=== PATIENT | male | born 1975 | race Caucasian/White ===

== ENCOUNTER 2017-10-01 14:11 | Day surgery (SDC) | payer OTHER ==
[~2017-10-01] VITALS: Ht 170.2 cm; Wt 93.2 kg
[~2017-10-01 14:11] MED LIST: ACET120S; ALBU90OI; ALBU90OI6; AMOX500 PO; DICLO GEL1 EACH; GLIP2.5ER; HYDGUAL120 PO; LANS15EC; LOSA25; LOVA40; METF500; PROCODE120 PO; Singulair4 M1; ZOLP5
[2017-10-01] MEDS ORDERED: Polyethylene G500 G4 (14:37)
[2017-10-01] MEDS ORDERED: PIOG45 (14:37)
== END 2017-10-01 17:29 | disposition home or self-care (01) ==
LOC: ORSCSDS 14:11
PROVIDERS: Internal Medicine Gastroenterology
PROC: 0D758ZZ Dilation of Esophagus, Via Natural or Artificial Opening Endoscopic (ICD-10-PCS; principal; 2017-10-01 15:30)
PROC: 0DB18ZX Excision of Upper Esophagus, Via Natural or Artificial Opening Endoscopic, Diagnostic (ICD-10-PCS; principal; 2017-10-01 15:30)
PROC: 0DB38ZX Excision of Lower Esophagus, Via Natural or Artificial Opening Endoscopic, Diagnostic (ICD-10-PCS; principal; 2017-10-01 15:30)
DX: K20.0 Eosinophilic esophagitis (principal); E11.9 Type 2 diabetes mellitus without complications; K21.9 Gastro-esophageal reflux disease without esophagitis; I10 Essential (primary) hypertension; J45.909 Unspecified asthma, uncomplicated; E78.5 Hyperlipidemia, unspecified; G47.33 Obstructive sleep apnea (adult) (pediatric); E66.9 Obesity, unspecified; Z68.32 Body mass index [BMI] 32.0-32.9, adult; Z79.84 Long term (current) use of oral hypoglycemic drugs; Z79.899 Other long term (current) drug therapy
CPT/HCPCS: 82947; 88305

== ENCOUNTER 2021-09-21 12:00 | Day surgery (SDC) | payer OTHER, BC ==
[~2021-09-21] VITALS: Ht 170.2 cm; Wt 89.2 kg
[~2021-09-21 12:00] MED LIST changes: +ALBU90OI INH; +Apple Cider Vi300 MG PO; +CHLO25B PO; +GLIP10 PO; +GLUCOPHAGE1000 MG PO; +LANS30EC PO; +LOSA25 PO; +Lovastatin20 MG PO; +MAGNESIUM PO; +MIRALAX119 GM PO; +MONT10T PO; +PIOG45; +Polyethylene G500 G4; +Sudogest60 MG PO; +TURMERIC CURCU500 MG PO; +ZOLP5 PO
[2021-09-21] MEDS ORDERED: TRULICITY1.5 MG/0.1 (12:32)
[2021-09-21] MEDS ORDERED: ROSU5 (12:33)
[2021-09-21] MEDS ORDERED: ZYRTEC10 M2 (12:34)
--- NOTE | 2021-09-21 12:48 | NUR ---
09/21/21 1248 Carol Comer TIMEOUT AND SITE CHECK DONE WITH DR CONSTANCE SRIVASTAVA.
== END 2021-09-21 15:50 | disposition home or self-care (01) ==
LOC: ORSCSDS 12:00
PROVIDERS: Orthopaedic Surgery
PROC: 0LS44ZZ Reposition Left Upper Arm Tendon, Percutaneous Endoscopic Approach (ICD-10-PCS; principal; 2021-09-21 13:30)
PROC: 0LQ24ZZ Repair Left Shoulder Tendon, Percutaneous Endoscopic Approach (ICD-10-PCS; principal; 2021-09-21 13:30)
PROC: 0RNK4ZZ Release Left Shoulder Joint, Percutaneous Endoscopic Approach (ICD-10-PCS; principal; 2021-09-21 13:30)
DX: M75.112 Incomplete rotator cuff tear or rupture of left shoulder, not specified as traumatic (principal); M75.22 Bicipital tendinitis, left shoulder; M75.42 Impingement syndrome of left shoulder; M75.32 Calcific tendinitis of left shoulder; I10 Essential (primary) hypertension; G47.33 Obstructive sleep apnea (adult) (pediatric); K21.9 Gastro-esophageal reflux disease without esophagitis; J45.909 Unspecified asthma, uncomplicated; E11.9 Type 2 diabetes mellitus without complications; E66.9 Obesity, unspecified; Z68.30 Body mass index [BMI] 30.0-30.9, adult; Z79.84 Long term (current) use of oral hypoglycemic drugs; Z79.899 Other long term (current) drug therapy
CPT/HCPCS: 82947; C1713; J0171; J0690; J1100; J2250; J2370; J2405; J2704; J3010; J7120

== ENCOUNTER 2022-04-24 09:41 | Emergency (ER) | payer BC, OTHER ==
[~2022-04-24] VITALS: Ht 165.1 cm; Wt 88.5 kg
[~2022-04-24 09:41] MED LIST changes: +ROSU5; +TRULICITY1.5 MG/0.1; +ZYRTEC10 M2
[2022-04-24] MEDS ORDERED: PHENY.5NI (10:48)
[2022-04-24 11:00] LABS: BASOPHILS ABSOLUTE AUTO 0.02 K/mm3 (0.00-0.23); BASOPHILS PERCENT AUTO 0 % (0-2); Base Excess Venous 3.9 mmol/L; Bicarbonate Venous 26.3 mmol/L (24.0-30.0); EOSINOPHILS ABSOLUTE AUTO 0.02 K/mm3 (0.00-0.68); EOSINOPHILS PERCENT AUTO 0 % (0-6); Hematocrit 43.7 % (37.0-53.0); Hemoglobin 15.1 g/dL (13.5-17.5); IMMATURE GRAN ABSOLUTE AUTO 0.07 K/mm3 (0.00-0.10); IMMATURE GRAN PERCENT AUTO 1 % (0-1); LYMPHOCYTES ABSOLUTE AUTO 1.22 K/mm3 (0.84-5.20); LYMPHOCYTES PERCENT AUTO 12 % (21-46); MONOCYTES ABSOLUTE AUTO 0.53 K/mm3 (0.16-1.47); MONOCYTES PERCENT AUTO 5 % (4-13); Mean Corpuscular HGB 29.9 pg (26.0-34.0); Mean Corpuscular HGB Conc 34.6 g/dL (31.5-36.5); Mean Corpuscular Volume 87 fL (80-100); Mean Platelet Volume 9.2 fL (9.1-12.4); NEUTROPHILS ABSOLUTE AUTO 8.63 K/mm3 (1.96-9.15); NEUTROPHILS PERCENT AUTO 82 % (41-73); PCO2 Venous 47.6 mmHg (38-42); Platelet Count 247 K/mm3 (150-400); RDW Coefficient Variation 11.8 % (11.7-14.2); RDW Standard Deviation 36.7 fL (35.1-46.3); Red Blood Cell Count 5.05 M/mm3 (4.30-5.90); White Blood Cell Count 10.49 K/mm3 (4.00-11.30); pH Blood Venous 7.39 (7.34-7.37)
[2022-04-24 11:37] LABS: Albumin, Blood 4.2 g/dL (3.4-5.0); Albumin/Globulin Ratio 1.2 (0.8-1.8); Bilirubin, Total 0.3 mg/dL (0.1-1.0); Bun/Creatinine Ratio 38.8 (12.0-20.0); Calcium, Blood 9.7 mg/dL (8.5-10.1); Creatinine, Blood 0.62 mg/dL (0.60-1.20); Globulin, Blood 3.5 g/dL (2.2-4.0); Potassium, Blood 4.1 mmol/L (3.5-5.5); Total Protein, Blood 7.7 g/dL (6.4-8.2)
== END 2022-04-24 12:42 | disposition home or self-care (01) ==
LOC: ER 09:41
PROVIDERS: Physician Assistant
DX: E11.65 Type 2 diabetes mellitus with hyperglycemia (principal); Z79.899 Other long term (current) drug therapy; Z79.84 Long term (current) use of oral hypoglycemic drugs
CPT/HCPCS: 36415; 80053; 82803; 85025; 99283

== ENCOUNTER 2022-08-29 10:39 | Day surgery (SDC) | payer OTHER ==
[~2022-08-29] VITALS: Ht 170.2 cm; Wt 88.5 kg
[~2022-08-29 10:39] MED LIST changes: +PHENY.5NI
[2022-08-29] MEDS ORDERED: ALOGLIPTIN6.25 M1 (10:54)
[2022-08-29] MEDS ORDERED: STEGLATRO5 MG (10:55)
== END 2022-08-29 13:16 | disposition home or self-care (01) ==
LOC: ORSCSDS 10:39
PROVIDERS: Internal Medicine Gastroenterology
PROC: 0DJD8ZZ Inspection of Lower Intestinal Tract, Via Natural or Artificial Opening Endoscopic (ICD-10-PCS; principal; 2022-08-29 12:00)
DX: Z12.11 Encounter for screening for malignant neoplasm of colon (principal); I10 Essential (primary) hypertension; G47.33 Obstructive sleep apnea (adult) (pediatric); K21.9 Gastro-esophageal reflux disease without esophagitis; E78.5 Hyperlipidemia, unspecified; E11.9 Type 2 diabetes mellitus without complications; J45.909 Unspecified asthma, uncomplicated; E66.9 Obesity, unspecified; Z68.32 Body mass index [BMI] 32.0-32.9, adult; Z79.84 Long term (current) use of oral hypoglycemic drugs; Z79.85 Long-term (current) use of injectable non-insulin antidiabetic drugs; Z79.899 Other long term (current) drug therapy
CPT/HCPCS: 82947; J2704; J7120

== ENCOUNTER 2024-07-06 22:03 | Emergency (ER) | payer OTHER ==
[~2024-07-06] VITALS: Ht 170.2 cm; Wt 83.9 kg
[~2024-07-06 22:03] MED LIST changes: +ALOGLIPTIN6.25 M1; +STEGLATRO5 MG
[2024-07-06 22:05] VITALS: BP 142/91
[2024-07-06 22:42] LABS: CORONAVIRUS COVID-19 AG Negative (NEGATIVE); INFLUENZA A AG Negative (NEGATIVE); INFLUENZA B AG Negative (NEGATIVE)
== END 2024-07-06 23:00 | disposition home or self-care (01) ==
LOC: ER 22:03
PROVIDERS: Emergency Medicine
DX: J06.9 Acute upper respiratory infection, unspecified (principal); E11.9 Type 2 diabetes mellitus without complications; J45.909 Unspecified asthma, uncomplicated; G47.30 Sleep apnea, unspecified; Z91.018 Allergy to other foods; Z88.8 Allergy status to other drugs, medicaments and biological substances; Z91.010 Allergy to peanuts; Z79.84 Long term (current) use of oral hypoglycemic drugs; Z79.899 Other long term (current) drug therapy
CPT/HCPCS: 87428-QW; 99283